=== PATIENT | male | born 1965 | race Caucasian/White ===

== ENCOUNTER 2025-08-04 10:04 | Emergency (ER) | payer BC, SELFPAY ==
[2025-08-04] VITALS (10 sets, daily range): BP systolic 164–211; BP diastolic 95–124; PULSE 74–83; BMI 27.7
--- NOTE | 2025-08-04 11:58 | PTCARENOTE ---
patient endorses left sided headache pain x 2-3 days, intermittent and dull in nature; pt states he has also felt fatigued and weak recently. pt denies any current headache or chest pain. pt does have a hx of HTN.
[2025-08-04 12:02] LABS: Hematocrit 41.9 % (39.0-52.0); Hemoglobin 14.1 g/dL (13.0-18.0); Mean Corp Hgb Conc. 33.7 g/dL (33.0-37.0); Mean Corpuscular Volume 83.5 fL (80.0-94.0); Nucleated Red Blood Cells % 0 % (-); Platelet Count 316 10^3/uL (130-400); Red Cell Dist. Width 12.6 % (11.5-14.5)
[2025-08-04 12:40] LABS: ALT (SGPT) 39 U/L (0-50); AST (SGOT) 27 U/L (17-59); Albumin 4.0 g/dl (3.5-5.0); Alkaline Phosphatase 41 U/L (38-126); Blood Urea Nitrogen 13 mg/dl (9-20); Calcium 8.3 mg/dl (8.4-10.2); Carbon Dioxide 26 mmol/L (22-30); Chloride 109 mmol/L (98-107); Estimated Creatinine Clearance > 125 ml/min; Glucose 89 mg/dl (70-99); Magnesium 1.8 mg/dl (1.6-2.3); Potassium 3.1 mmol/L (3.5-5.1); Sodium 141 mmol/L (135-145); Total Protein 6.7 g/dl (6.3-8.2); eGFR > 60.00
[2025-08-04 12:51] LABS: TSH 1.20 uIU/ml (0.47-4.68)
[2025-08-04 12:53] LABS: Troponin I < 0.012 ng/ml
[2025-08-04] MEDS: KCL 40 MEQ PO (14:35)
--- NOTE | 2025-08-04 14:45 | ED.GENMED ---
History of Present Illness
General
Chief Complaint: Fainting Sensation
Source: patient
Time Seen by Provider: 08/04/25 10:51
Nursing documentation reviewed up to this point in time: agreed with
History of Present Illness
History of Present Illness:
Pt presents to ED secondary to sudden onset of dizziness, nausea and tingling sensation in both of his hands while he was at work this morning, in sitting position. Denies headache. Denies blurred vision. Denies difficulty with speech. Denies
cp/palpitations/sob. Denies vomiting. Denies loss of sensation/weakness. At the time of evaluation in ED, patient states that his symptoms have all resolved. Of note, for the past 2 days, patient reports having had constipation followed by number of
diarrhea episodes. Denies recent change in medications/diet. Pt does see his PMD on regular basis. In addition, per patient and spouse, patient unfortunately has has number of similar symptoms in the past, which has resulted in number of evaluations
in ED and outpatient workups including cardiology consultation with holter monitoring. No etiology has been found thus far.
Review of Systems
Review of Systems
Allergies reviewed?: Yes
All Other Systems: ROS reviewed and negative except as documented in HPI and ROS
Constitutional: Reports no symptoms
EENT: Reports no symptoms
Respiratory: Reports no symptoms
Cardiac: Reports no symptoms
ABD/GI: Reports nausea
Musculoskeletal: Reports no symptoms
Neurological: Reports dizzy and numbness
Phy Exam
Physical Exam
Physical Exam:
General: well appearing male, in no acute distress. afebrile
Heent: nc/at. eomi.
Lungs: cta
Heart: rrr. no murmur
Abd: soft and nontender
Neuro: aao x 3. no focal neurological deficit. normal speech. normal gait
Skin: warm to touch. no rash
Psych: pleasant and cooperative
Course
Orders/Labs/Results
Orders:
Orders
08/04/25 10:11
Electrocardiogram (*1) Urgent
Reason for Study: Vertigo / Dizzy
EKG- Treatment ONCE
08/04/25 11:44
Complete Blood Count/With Diff Urgent
TSH Urgent
08/04/25 12:17
Comprehensive Metabolic Panel Urgent
Magnesium Urgent
Troponin I Urgent
08/04/25 14:14
Orthostatic VS- Treatment ONCE
Potassium Chloride [KCl] 40 meq PO NOW STA
Abnormal Lab Results
08/04/25
12:17
Potassium 3.1 L mmol/L
(3.5-5.1)
Chloride 109 H mmol/L
(98-107)
Creatinine 0.6 L mg/dL
(0.7-1.3)
Calcium 8.3 L mg/dl
(8.4-10.2)
08/04/25 11:44
08/04/25 12:17
Vital Signs
Initial and Last Documented VS:
Initial Vital Signs
Temp Pulse Resp BP Pulse Ox
97.6 F 69 18 211/119 98
08/04/25 10:08 08/04/25 10:08 08/04/25 10:08 08/04/25 10:08 08/04/25 10:08
Last Documented Vital Signs
Temp Pulse Resp BP Pulse Ox
98.3 F 68 18 183/103 98
08/04/25 14:58 08/04/25 14:58 08/04/25 14:58 08/04/25 14:58 08/04/25 14:58
MDM/Problems Addressed
MDM/Problems Addressed:
Pt remains asymptomatic during extended course of observation, along with unremarkable workup. Mild hypokalemia discussed, which may be dietary in origin vs result of recent GI issues. Advised close f/u with pmd for re-evaluation, including repeat
blood work and BP check, as fluctuating BP also may be contributing to his symptoms. In addition, as previous episodes of may have also coincided with GI symptoms, and pt does express intermittent Gi difficulties, pt will be referred to GI for
outpatient consultation as well. Pt and spouse expressed understanding at time of discharge.
*Pulse Oximetry
SaO2: 97
Oxygen Mode of Delivery: Room air
Patient hypoxic: no
*Critical Care Note
Total Time (30-74mins, 75-104mins- exclusive of procedures): Not Applicable
ED Attending Note
-
Portions of this chart may have been created with voice recognition software.� Occasional wrong word or��sound alike� substitutions may have occurred due to the inherent limitations of voice recognition software.
Discharge Plan
Departure
Patient Disposition: Home (Routine Discharge)
Date of Disposition: 08/04/25
Time of Disposition: 14:46
Patient with high blood pressure during this ER visit?: Yes
Discharge Problem:
Dizziness, Hypokalemia, Hypertension
Instructions: Hypokalemia, High-potassium diet, Dizziness in adults - ED (DC), BLOOD PRESSURE
Referrals:
Reginaldo Lau MD [Active, Gastroenterology]
UNKNOWN - PT DOES,NOT KNOW [Family Provider]
Stand Alone Forms: Return to Work
Activity Restrictions/Additional Instructions:
As discussed, please follow-up with your primary care physician and/or referred GI physician for further evaluation and treatment. Please consider return to ED with recurrent or worsening symptoms.
Interventions
Interventions:
*Risk Screen - Suicide Last Done: 08/04/25 10:08
*General Assessment Last Done: 08/04/25 10:08
*Neglect/Abuse Screening Last Done: 08/04/25 10:08
*Nursing Disposition Last Done: 08/04/25 14:58
ED- Cardiac Assessment Last Done: 08/04/25 11:42
ED- Neurological Assessment Last Done: 08/04/25 11:43
Discharge Date and Time
Discharge Date/Time: 08/04/25 14:59
Print Language: UPPER SORBIAN
== END 2025-08-04 14:59 | disposition home or self-care (01) ==
LOC: EMR 10:04
PROVIDERS: EMERGENCY PHYSICIAN Emergency Medicine
DX: E87.6 Hypokalemia (principal); I10 Essential (primary) hypertension; R42 Dizziness and giddiness
CPT/HCPCS: 99284; 80053; 83735; 84443; 84484; 85025; 93005